=== PATIENT | male | born 1975 | race Caucasian/White ===

== ENCOUNTER → 2022-03-05 | Outpatient (CLI) | payer MEDICAID ==
[~2022-03-05] MED LIST: AMLO5TAB4 MT; ASPI-1160 MT; CLOP-31 MT; LIP40 MT; METF-414 MT
== END | disposition home or self-care (01) ==
LOC: LAB 08:10
PROVIDERS: ATTEND Specialist
DX: R05.9 Cough, unspecified (principal); Z20.822 Contact with and (suspected) exposure to COVID-19
CPT/HCPCS: C9803; U0003; U0005

== ENCOUNTER 2022-03-06 08:34 | Inpatient (IN) | payer MEDICAID ==
[~2022-03-06] VITALS: Ht 160 cm; Wt 79.0 kg
[2022-03-06] VITALS (8 sets, daily range): BP systolic 110–137; BP diastolic 69–84
[2022-03-06] MEDS ORDERED: NICARDIPINE 100MCG/ML 10ML VIAL (CATH LAB) IV ONE (08:36)
[2022-03-06] MEDS ORDERED: NITROGLYCERIN 50MCG/ML 10ML VIAL (CATH LAB) IV ONE (08:36)
[2022-03-06] MEDS ORDERED: HEPARIN SODIUM 1,000 UNIT/1ML VIAL IV ONE (08:36)
[2022-03-06] MEDS ORDERED: AMLO5TAB4 MT (10:25)
[2022-03-06] MEDS ORDERED: METF-414 MT (10:25)
[2022-03-06] MEDS ORDERED: LIP40 MT (10:25)
[2022-03-06] MEDS ORDERED: CLOP-31 MT (10:25)
[2022-03-06] MEDS ORDERED: ASPI-1160 MT (10:25)
[2022-03-06] MEDS ORDERED: IODIXANOL 320MG/ML 100 ML BOTTLE IV ONE ×2 (11:09→12:30)
[2022-03-06] MEDS ORDERED: LIDOCAINE HCL 1% 20ML VIAL (Pyxis) INJ ONE (11:09)
[2022-03-06] MEDS ORDERED: FENTANYL CITRATE/PF 50MCG/ML 2ML VIAL ONE (11:10)
[2022-03-06] MEDS ORDERED: MIDAZOLAM HCL 5 MG/5 ML VIAL ONE (11:10)
[2022-03-06] MEDS ORDERED: CLOPIDOGREL 75MG TABLET ONE (12:50)
[2022-03-06] MEDS ORDERED: CLOPIDOGREL 75MG TABLET PO NR (13:00)
[2022-03-06] MEDS ORDERED: MORPHINE SULFATE 2 MG/ML CPJ (NOT FOR IM USE) IV PRN (13:00)
[2022-03-06] MEDS: BLOOD SUGAR DIAGNOSTIC STRIP TEST SCH ×3 (13:00→21:18)
[2022-03-06] MEDS ORDERED: ONDANSETRON HCL 4MG/2ML INJ IV PRN (13:00)
[2022-03-06] MEDS ORDERED: DEXTROSE 50% WATER 50ML SYRINGE IV PRN (13:00)
[2022-03-06] MEDS ORDERED: ATROPINE SULFATE 1MG/10ML SYR IV PRN (13:00)
[2022-03-06] MEDS: INSULIN LISPRO 100 UNITS/ML SUBCUT SCH ×3 (13:00→21:00)
[2022-03-06] MEDS ORDERED: ACETAMINOPHEN 325MG TABLET PO PRN (13:00)
[2022-03-06] MEDS ORDERED: SODIUM CHLORIDE 0.45% 1,000 ML IV ONE (13:15)
[2022-03-06] MEDS ORDERED: NALOXONE HCL 0.4MG/ML VIAL IV PRN (20:15)
[2022-03-06] MEDS ORDERED: ATORVASTATIN CALCIUM 40MG TABLET PO SCH (21:00)
[2022-03-07 01:58] VITALS: BP 110/67
[2022-03-07 03:58] VITALS: BP 116/66
[2022-03-07 05:58] VITALS: BP 120/72
[2022-03-07 06:28] LABS: CHLORIDE 107 mEq/L (98-107)
[2022-03-07] MEDS: INSULIN LISPRO 100 UNITS/ML SUBCUT SCH (07:54)
[2022-03-07] MEDS: BLOOD SUGAR DIAGNOSTIC STRIP TEST SCH (07:54)
[2022-03-07 08:00] VITALS: BP 118/68
[2022-03-07] MEDS ORDERED: CLOPIDOGREL 75MG TABLET PO SCH (09:00)
[2022-03-07] MEDS ORDERED: ASPIRIN 81MG TABLET PO SCH (09:00)
[2022-03-07] MEDS ORDERED: AMLODIPINE 5MG TABLET PO SCH (09:00)
[2022-03-07 09:30] VITALS: BP 121/79
[2022-03-07 09:56] VITALS: BP 121/79
[2022-03-07 11:29] LABS: BASOPHILS % 0.3 % (0.0-2.0); EOSINOPHILS % 2.3 % (0.0-5.0); HEMATOCRIT. 40.6 % (42.0-52.0); HEMOGLOBIN. 13.9 g/dL (14.0-18.0); LYMPHOCYTES % 23.6 % (20.0-50.0); MEAN CORPUSCULAR VOLUME 81.5 fL (80.0-94.0); MEAN PLATELET VOLUME 7.8 fl (7.4-10.4); MONOCYTES % 6.4 % (2.0-8.0); NEUTROPHILS % 67.4 % (40.0-76.0); PLATELET 248 x1000/uL (130-400); RED BLOOD CELL COUNT 4.98 mill/uL (4.7-6.1); RED CELL DISTRIBUTION WIDTH 13.4 % (11.6-14.6)
== END 2022-03-07 11:00 | disposition home or self-care (01) | DRG 175 ==
LOC: CCL 08:34 → 5EST 08:35
PROVIDERS: ADMIT Specialist; ATTEND Specialist
PROC: 4A023N7 Measurement of Cardiac Sampling and Pressure, Left Heart, Percutaneous Approach (ICD-10-PCS; principal; 2022-03-06)
PROC: 0270346 Dilation of Coronary Artery, One Artery, Bifurcation, with Drug-eluting Intraluminal Device, Percutaneous Approach (ICD-10-PCS; 2022-03-06)
PROC: B2111ZZ Fluoroscopy of Multiple Coronary Arteries using Low Osmolar Contrast (ICD-10-PCS; 2022-03-06)
PROC: 02703ZZ Dilation of Coronary Artery, One Artery, Percutaneous Approach (ICD-10-PCS; 2022-03-06)
PROC: 027034Z Dilation of Coronary Artery, One Artery with Drug-eluting Intraluminal Device, Percutaneous Approach (ICD-10-PCS; 2022-03-06)
DX: I25.10 Atherosclerotic heart disease of native coronary artery without angina pectoris (principal); E11.9 Type 2 diabetes mellitus without complications; E78.5 Hyperlipidemia, unspecified; I10 Essential (primary) hypertension; Z79.02 Long term (current) use of antithrombotics/antiplatelets; Z79.82 Long term (current) use of aspirin; Z79.84 Long term (current) use of oral hypoglycemic drugs; Z79.899 Other long term (current) drug therapy
CPT/HCPCS: 36415; 80048; 82962; 85025; 85347; 92928; 93005; 93458; C1725; C1769; C1874 ×2; C1887; C1893; J1644; J2250; J3010; J3490; Q9967

== ENCOUNTER 2025-06-14 00:53 | Inpatient (IN) | payer MEDICAID ==
[~2025-06-14] VITALS: Ht 162.6 cm; Wt 59.6 kg
[2025-06-14] VITALS (69 sets, daily range): BP systolic 83–140; BP diastolic 52–80; PULSE 87–139; RESP 11–31; TEMP 36.2–36.7; O2SAT 98–100
[~2025-06-14 00:53] MED LIST changes: -AMLO5TAB4 MT; +AMLO5TAB5 MT
[2025-06-14] MEDS: MORPHINE SULFATE 4 MG/ML INJ (FOR IV/IM USE) IV ONE (01:20)
[2025-06-14] MEDS: ONDANSETRON HCL 4MG/2ML INJ IV ONE (01:20)
[2025-06-14] MEDS: ASPIRIN 325MG TABLET PO ONE (01:20)
[2025-06-14 01:35] LABS: HEMATOCRIT. 30.7 % (42.0-52.0); HEMOGLOBIN. 9.9 g/dL (14.0-18.0); MEAN PLATELET VOLUME 7.4 fl (7.4-10.4); PLATELET 645 x1000/uL (130-400); RED BLOOD CELL COUNT 3.42 mill/uL (4.7-6.1); RED CELL DISTRIBUTION WIDTH 18.4 % (11.6-14.6)
[2025-06-14 01:44] LABS: CREATININE 1.1 mg/dL (0.6-1.3)
[2025-06-14 01:45] LABS: UREA NITROGEN BLOOD 20 mg/dL (9-23)
[2025-06-14 01:46] LABS: TROPONIN I HIGH SENSITIVITY 11 ng/L (3.0-53)
[2025-06-14] MEDS ORDERED: AMIODARONE 360MG/200ML 200 ML IV SCH (02:15)
[2025-06-14] MEDS: AMIODARONE 150MG/100ML D5W 100 ML IV ONE (02:19)
[2025-06-14 02:36] LABS: INR 1.0
[2025-06-14] MEDS: AMIODARONE 360MG/200ML 200 ML IV SCH ×2 (02:42→20:57)
[2025-06-14 03:48] LABS: TROPONIN I HIGH SENSITIVITY 14 ng/L (3.0-53)
[2025-06-14 06:23] LABS: BG BASE EXCESS -25.4 mmol/L (-2.0-3.0); BG CARBOXYHEMOGLOBIN 0.6 % (0.5-1.5); BG DEOXYHEMOGLOBIN 1.4 % (0.0-5.0); BG FLOW(L/min) 3.00 L/min; BG FRACTION INSPIRED OXYGEN 32; BG HCO3 ACT 2.9 mmol/L (21.0-28.0); BG METHEMOGLOBIN 0.2 % (0.5-1.5); BG OXYGEN SATURATION 98.6 % (94.0-98.0); BG OXYHEMOGLOBIN 97.8 % (94.0-98.0); BG PCO2 10.7 mmHg (35.0-48.0); BG PH 7.053 (7.350-7.450); BG PO2 159.8 mmHg (83.0-108.0); BG SAMPLE SITE RIGHT BRACHIAL; BG TOTAL HEMOGLOBIN 11.9 g/dL (13.5-17.5); BG VENT MODE NASAL CANNULA
[2025-06-14] MEDS ORDERED: DEXTROSE 50% WATER 50ML SYRINGE IV PRN ×2 (06:30→16:30)
[2025-06-14 06:32] LABS: HEMATOCRIT. 29.8 % (42.0-52.0); HEMOGLOBIN. 9.4 g/dL (14.0-18.0); MEAN PLATELET VOLUME 7.2 fl (7.4-10.4); PLATELET 651 x1000/uL (130-400); RED BLOOD CELL COUNT 3.30 mill/uL (4.7-6.1); RED CELL DISTRIBUTION WIDTH 19.2 % (11.6-14.6)
[2025-06-14 06:43] LABS: CREATININE 1.2 mg/dL (0.6-1.3)
[2025-06-14 06:44] LABS: TROPONIN I HIGH SENSITIVITY 13 ng/L (3.0-53); UREA NITROGEN BLOOD 27 mg/dL (9-23)
[2025-06-14] MEDS ORDERED: SODIUM BICARBONATE 8.4% 50MEQ/50ML SYR IV NR (06:45)
[2025-06-14 06:46] LABS: PHOSPHORUS 4.4 mg/dL (2.5-4.9)
[2025-06-14] MEDS: SODIUM BICARBONATE 8.4% 50MEQ/50ML SYR IV NR (06:48)
[2025-06-14] MEDS: SODIUM BICARBONATE 100 MEQ in SODIUM CHLORIDE 0.45% 900 ML IV SCH (07:28)
[2025-06-14 07:38] LABS: INR 1.0
[2025-06-14] MEDS: BLOOD SUGAR DIAGNOSTIC STRIP TEST SCH ×2 (07:50→17:00)
[2025-06-14] MEDS ORDERED: AMIODARONE HCL 900 MG in DEXT 5% WATER 482 ML IV SCH (08:30)
[2025-06-14] MEDS ORDERED: IPRATROPIUM/ALBUTEROL 0.5-3(2.5)MG/3ML NEB HHN PRN (08:45)
[2025-06-14] MEDS ORDERED: ACETAMINOPHEN 325MG TABLET PO PRN (08:45)
[2025-06-14] MEDS ORDERED: CLONIDINE 0.1MG TABLET PO PRN (08:45)
[2025-06-14] MEDS: AMIODARONE 360MG/200ML 200 ML IV ONE (09:00)
[2025-06-14] MEDS ORDERED: CEFEPIME 1GM IN DEXT 5% 50ML IV SCH (09:00)
[2025-06-14] MEDS: DIGOXIN 500MCG/2ML AMP IV NR (09:37)
[2025-06-14] MEDS: ENOXAPARIN 60MG/0.6ML SYR SUBCUT SCH (09:37)
[2025-06-14] MEDS: METHYLPREDNISOLONE SOD SUCC 40MG/ML (ACT-O-VIAL) IV SCH (09:37)
[2025-06-14] MEDS: PANTOPRAZOLE SODIUM 40 MG/VIAL IV SCH (09:37)
[2025-06-14] MEDS: INSULIN LISPRO 100 UNITS/ML SUBCUT SCH (09:38)
[2025-06-14] MEDS: CEFEPIME 2GM/100ML 100 ML IV SCH (10:36)
[2025-06-14] MEDS: VANCOMYCIN 1.25GM/250ML 250 ML IV NR (10:37)
[2025-06-14 11:32] LABS: BAND% 7.0 % (1.0-6.0); LYMPHOCYTES % MANUAL 2.0 % (20.0-50.0); MONOCYTES % MANUAL 1.0 % (2.0-8.0); NEUTROPHILS % MANUAL 90.0 % (45.0-75.0); PLATELET ESTIMATE INCREASED
[2025-06-14 12:14] LABS: BG BASE EXCESS -18.7 mmol/L (-2.0-3.0); BG CARBOXYHEMOGLOBIN 0.2 % (0.5-1.5); BG DEOXYHEMOGLOBIN 1.1 % (0.0-5.0); BG FRACTION INSPIRED OXYGEN 32; BG HCO3 ACT 5.7 mmol/L (21.0-28.0); BG METHEMOGLOBIN 0.2 % (0.5-1.5); BG OXYGEN SATURATION 98.9 % (94.0-98.0); BG OXYHEMOGLOBIN 98.5 % (94.0-98.0); BG PCO2 12.0 mmHg (35.0-48.0); BG PH 7.291 (7.350-7.450); BG PO2 153.9 mmHg (83.0-108.0); BG SAMPLE SITE RIGHT RADIAL; BG TOTAL HEMOGLOBIN 9.1 g/dL (13.5-17.5); BG VENT MODE NASAL CANNULA
[2025-06-14 13:25] LABS: CLARITY URINE CLEAR (CLEAR); COLOR URINE YELLOW (YELLOW); GLUCOSE URINE 3+ (NEGATIVE); KETONES URINE 4+ (NEGATIVE); LEUKOCYTE ESTERASE URINE NEGATIVE (NEGATIVE); NITRITE URINE NEGATIVE (NEGATIVE); OCCULT BLOOD URINE 2+ (NEGATIVE); PH URINE 5.0 (4.5-8.0); PROTEIN URINE 1+ (NEGATIVE); SPECIFIC GRAVITY URINE 1.038 (1.005-1.030); UROBILINOGEN URINE 0.2 E.U./dL (0.2-1.0)
[2025-06-14 13:56] LABS: BACTERIA URINE NONE SEEN; HYALINE CASTS URINE 0-5 /lpf; RBC URINE 0-2 /hpf (0-2); SQUAMOUS EPITHELIAL CELL URINE RARE /lpf (RARE/1+); WBC URINE 0-2 /hpf (0-2); YEAST URINE NONE SEEN
[2025-06-14 13:59] LABS: BAND% 15.0 % (1.0-6.0); LYMPHOCYTES % MANUAL 1.0 % (20.0-50.0); MONOCYTES % MANUAL 3.0 % (2.0-8.0); NEUTROPHILS % MANUAL 81.0 % (45.0-75.0); NUCLEATED RED BLOOD CELLS 1 /100 WBC; PLATELET ESTIMATE INCREASED
[2025-06-14 13:59] LABS: *AMPHETAMINES SCREEN URINE NEGATIVE (NEGATIVE)
[2025-06-14 14:00] LABS: *BARBITURATES SCREEN URINE NEGATIVE (NEGATIVE); *BENZODIAZEPINES SCREEN URINE NEGATIVE (NEGATIVE); *COCAINE SCREEN URINE NEGATIVE (NEGATIVE); CANNABINOID URINE SCREEN NEGATIVE (NEGATIVE); ECSTASY MDMA SCREEN URINE NEGATIVE (NEGATIVE); METHADONE URINE SCREEN NEGATIVE (NEGATIVE); OPIATES URINE SCREEN PRESUMPTIVE POSITIVE (NEGATIVE); PHENCYCLIDINE URINE SCREEN NEGATIVE (NEGATIVE)
[2025-06-14] MEDS ORDERED: PIPERACILLIN/TAZO 3.375G/50ML 50 ML IV SCH (14:00)
[2025-06-14 14:33] LABS: LACTATE DEHYDROGENASE 486 IU/L (120-246)
[2025-06-14 14:40] LABS: FOLIC ACID (FOLATE) SERUM 11.59 ng/mL (>5.38)
[2025-06-14 14:41] LABS: VITAMIN B12 SERUM 1376 pg/mL (211-911)
[2025-06-14] MEDS ORDERED: MAGNESIUM 2 G PREMIX 50 ML IV PRN (16:30)
[2025-06-14] MEDS ORDERED: BLOOD SUGAR DIAGNOSTIC STRIP TEST PRN (16:30)
[2025-06-14] MEDS: ASPIRIN 325MG EC TABLET PO SCH (17:22)
[2025-06-14] MEDS: INSULIN REGULAR 100U/100ML PMX 100 ML IV SCH (17:23)
[2025-06-14] MEDS: SODIUM CHLORIDE 0.9% 1,000 ML IV SCH (17:23)
[2025-06-14] MEDS: DEXT 5%/0.9% NACL 1,000 ML IV SCH (17:23)
[2025-06-14] MEDS: DIGOXIN 500MCG/2ML AMP IV SCH (17:40)
[2025-06-14 17:55] LABS: CREATININE 1.2 mg/dL (0.6-1.3); UREA NITROGEN BLOOD 24 mg/dL (9-23)
[2025-06-14 17:57] LABS: CREATINE KINASE MB FRACTION 2.9 ng/mL (0.5-3.6); LACTATE DEHYDROGENASE 396 IU/L (120-246); TROPONIN I HIGH SENSITIVITY 14.0 ng/L (3.0-53)
[2025-06-14 18:00] LABS: FOLIC ACID (FOLATE) SERUM 11.29 ng/mL (>5.38)
[2025-06-14 18:09] LABS: VITAMIN B12 SERUM > 2000 pg/mL (211-911)
[2025-06-14 18:18] LABS: PHOSPHORUS 1.0 mg/dL (2.5-4.9)
[2025-06-14] MEDS: KCL 20MEQ/100ML X 2 FOR TOTAL KCL 40MEQ/200ML IV SCH (18:39)
[2025-06-14] MEDS ORDERED: SODIUM BICARBONATE 8.4% 50MEQ/50ML SYR IV SCH (18:45)
[2025-06-14] MEDS: SODIUM PHOSPHATE 15 MMOL in SODIUM CHLORIDE 0.9% 245 ML IV PRN (21:27)
[2025-06-14] MEDS: VANCOMYCIN 750MG PMX (XELLIA) 150 ML IV SCH (21:28)
[2025-06-14] MEDS: AMIODARONE 200MG TABLET PO SCH (23:12)
[2025-06-14] MEDS: IPRATROPIUM/ALBUTEROL 0.5-3(2.5)MG/3ML NEB HHN SCH (23:36)
[2025-06-15] VITALS (84 sets, daily range): BP systolic 110–163; BP diastolic 59–136; PULSE 80–120; RESP 12–25; TEMP 36.6–37.4; O2SAT 98–100
[2025-06-15 00:13] LABS: CREATININE 1.0 mg/dL (0.6-1.3)
[2025-06-15 00:14] LABS: UREA NITROGEN BLOOD 19 mg/dL (9-23)
[2025-06-15 00:16] LABS: CREATINE KINASE MB FRACTION 2.5 ng/mL (0.5-3.6); PHOSPHORUS 1.4 mg/dL (2.5-4.9)
[2025-06-15 00:17] LABS: TROPONIN I HIGH SENSITIVITY 19.0 ng/L (3.0-53)
[2025-06-15] MEDS: POTASSIUM CHLORIDE 40 MEQ in SODIUM CHLORIDE 0.9% 230 ML IV PRN (01:32)
[2025-06-15 04:41] LABS: CREATININE 0.9 mg/dL (0.6-1.3); UREA NITROGEN BLOOD 16 mg/dL (9-23)
[2025-06-15 05:42] LABS: PHOSPHORUS 1.7 mg/dL (2.5-4.9)
[2025-06-15 06:31] LABS: HEMATOCRIT. 23.3 % (42.0-52.0); HEMOGLOBIN. 7.6 g/dL (14.0-18.0); MEAN PLATELET VOLUME 7.3 fl (7.4-10.4); PLATELET 379 x1000/uL (130-400); RED BLOOD CELL COUNT 2.58 mill/uL (4.7-6.1); RED CELL DISTRIBUTION WIDTH 19.4 % (11.6-14.6)
[2025-06-15] MEDS: POTASSIUM PHOSPHATE 30 MMOL in DEXT 5% WATER 490 ML IV NR (06:50)
[2025-06-15] MEDS: AMIODARONE 200MG TABLET PO SCH (08:41)
[2025-06-15] MEDS: POTASSIUM CHLORIDE 20MEQ TABLET SR PO NR (08:45)
[2025-06-15 09:19] LABS: BG BASE EXCESS -16.5 mmol/L (-2.0-3.0); BG CARBOXYHEMOGLOBIN 1.3 % (0.5-1.5); BG DEOXYHEMOGLOBIN 1.2 % (0.0-5.0); BG FRACTION INSPIRED OXYGEN 21; BG HCO3 ACT 8.4 mmol/L (21.0-28.0); BG METHEMOGLOBIN 0.3 % (0.5-1.5); BG OXYGEN SATURATION 98.8 % (94.0-98.0); BG OXYHEMOGLOBIN 97.2 % (94.0-98.0); BG PCO2 17.8 mmHg (35.0-48.0); BG PH 7.290 (7.350-7.450); BG PO2 146.1 mmHg (83.0-108.0); BG SAMPLE SITE RIGHT RADIAL; BG TOTAL HEMOGLOBIN 7.3 g/dL (13.5-17.5); BG VENT MODE ROOM AIR
[2025-06-15 10:35] LABS: CREATININE 0.9 mg/dL (0.6-1.3); UREA NITROGEN BLOOD 13 mg/dL (9-23)
[2025-06-15 10:37] LABS: ASPARTATE AMINOTRANSFERASE 10 IU/L (<34); BILIRUBIN TOTAL 0.3 mg/dL (0.1-1.0); PHOSPHORUS 2.4 mg/dL (2.5-4.9); PROTEIN TOTAL 4.9 g/dL (6.0-8.3)
[2025-06-15] MEDS: CEFEPIME 2GM/100ML 100 ML IV SCH (11:32)
[2025-06-15] MEDS: SODIUM BICARBONATE 150 MEQ in SODIUM CHLORIDE 0.45% 850 ML IV SCH (11:44)
[2025-06-15] MEDS: INSULIN GLARGINE 100 UNITS/ML SUBCUT SCH (11:45)
[2025-06-15] MEDS: ACETAMINOPHEN 325MG TABLET PO PRN (14:00)
[2025-06-15 17:22] LABS: CREATININE 0.9 mg/dL (0.6-1.3)
[2025-06-15 17:23] LABS: UREA NITROGEN BLOOD 11 mg/dL (9-23)
[2025-06-15 17:24] LABS: ASPARTATE AMINOTRANSFERASE 9 IU/L (<34)
[2025-06-15 17:25] LABS: BILIRUBIN TOTAL 0.3 mg/dL (0.1-1.0); PHOSPHORUS 1.8 mg/dL (2.5-4.9); PROTEIN TOTAL 4.9 g/dL (6.0-8.3)
[2025-06-15] MEDS ORDERED: VANCOMYCIN 1GM PMX (XELLIA) 200 ML IV SCH (18:00)
[2025-06-15] MEDS: KCL 20MEQ/100ML PREMIX 100 ML IV PRN (19:06)
[2025-06-15] MEDS: DEXT 5%/LACTATED RINGERS 1,000 ML IV SCH (21:05)
[2025-06-15 23:21] LABS: CREATININE 0.9 mg/dL (0.6-1.3); UREA NITROGEN BLOOD 11 mg/dL (9-23)
[2025-06-16] VITALS (67 sets, daily range): BP systolic 123–164; BP diastolic 67–113; PULSE 79–118; RESP 13–23; TEMP 36.6696–37.00296; O2SAT 97–100
[2025-06-16] MEDS: POTASSIUM CHLORIDE 20MEQ TABLET SR PO NR (02:07)
[2025-06-16] MEDS: SODIUM CHL 0.45% + KCL 20MEQ/L 1,000 ML IV SCH (02:35)
[2025-06-16 06:19] LABS: BASOPHILS % 0.1 % (0.0-2.0); EOSINOPHILS % 0.0 % (0.0-5.0); LYMPHOCYTES % 7.6 % (20.0-50.0); MEAN PLATELET VOLUME 7.1 fl (7.4-10.4); MONOCYTES % 6.3 % (2.0-8.0); NEUTROPHILS % 86.0 % (40.0-76.0); PLATELET 336 x1000/uL (130-400); RED BLOOD CELL COUNT 2.37 mill/uL (4.7-6.1); RED CELL DISTRIBUTION WIDTH 19.1 % (11.6-14.6)
[2025-06-16 06:33] LABS: HEMATOCRIT. 20.6 % (42.0-52.0)
[2025-06-16 06:34] LABS: HEMOGLOBIN. 6.9 g/dL (14.0-18.0)
[2025-06-16 06:42] LABS: CREATININE 0.8 mg/dL (0.6-1.3); UREA NITROGEN BLOOD 12 mg/dL (9-23)
[2025-06-16 06:44] LABS: PHOSPHORUS 1.4 mg/dL (2.5-4.9)
[2025-06-16 08:31] LABS: BAND% 11.0 % (1.0-6.0); LYMPHOCYTES % MANUAL 1.0 % (20.0-50.0); MONOCYTES % MANUAL 5.0 % (2.0-8.0); NEUTROPHILS % MANUAL 83.0 % (45.0-75.0); NUCLEATED RED BLOOD CELLS 1 /100 WBC
[2025-06-16 09:29] LABS: CREATININE 0.8 mg/dL (0.6-1.3); UREA NITROGEN BLOOD 13 mg/dL (9-23)
[2025-06-16] MEDS: POTASSIUM PHOSPHATE 30 MMOL in SODIUM CHLORIDE 0.9% 490 ML IV NR (09:51)
[2025-06-16] MEDS: SODIUM BICARBONATE 650MG TABLET PO SCH (09:51)
[2025-06-16] MEDS ORDERED: DEXTROSE 50% WATER 50ML SYRINGE IV PRN (11:30)
[2025-06-16] MEDS: BLOOD SUGAR DIAGNOSTIC STRIP TEST SCH (12:50)
[2025-06-16] MEDS: INSULIN LISPRO 100 UNITS/ML SUBCUT SCH (13:20)
[2025-06-16 14:20] LABS: PLATELET ESTIMATE NORMAL
[2025-06-16] MEDS ORDERED: NON FORMULARY MED XX SCH (16:00)
[2025-06-16 17:31] LABS: HEMATOCRIT. 23.5 % (42.0-52.0); HEMOGLOBIN. 8.1 g/dL (14.0-18.0); MEAN PLATELET VOLUME 7.1 fl (7.4-10.4); PLATELET 283 x1000/uL (130-400); RED BLOOD CELL COUNT 2.71 mill/uL (4.7-6.1); RED CELL DISTRIBUTION WIDTH 19.6 % (11.6-14.6)
[2025-06-16 17:39] LABS: INR 1.2
[2025-06-16] MEDS: IRON SUCROSE COMPLEX 100 MG/5 ML ML IV SCH (17:44)
[2025-06-16 17:45] LABS: CREATININE 0.7 mg/dL (0.6-1.3); UREA NITROGEN BLOOD 12 mg/dL (9-23)
[2025-06-16 17:47] LABS: ASPARTATE AMINOTRANSFERASE 11 IU/L (<34)
[2025-06-16 17:48] LABS: BILIRUBIN TOTAL 0.6 mg/dL (0.1-1.0); PROTEIN TOTAL 5.1 g/dL (6.0-8.3)
[2025-06-16 18:06] LABS: LYMPHOCYTES % MANUAL 5.0 % (20.0-50.0); MONOCYTES % MANUAL 8.0 % (2.0-8.0); NEUTROPHILS % MANUAL 87.0 % (45.0-75.0); PLATELET ESTIMATE NORMAL
[2025-06-16] MEDS: IOHEXOL-350 100 ML BOTTLE ONE ×2 (20:34)
[2025-06-17] VITALS (33 sets, daily range): BP systolic 55–138; BP diastolic 33–82; PULSE 88–131; RESP 14–34; TEMP 36.7–36.8; O2SAT 94–100
[2025-06-17 07:02] LABS: BASOPHILS % 0.1 % (0.0-2.0); EOSINOPHILS % 0.2 % (0.0-5.0); HEMATOCRIT. 22.2 % (42.0-52.0); HEMOGLOBIN. 7.9 g/dL (14.0-18.0); LYMPHOCYTES % 10.5 % (20.0-50.0); MEAN PLATELET VOLUME 6.9 fl (7.4-10.4); MONOCYTES % 6.8 % (2.0-8.0); NEUTROPHILS % 82.4 % (40.0-76.0); PLATELET 243 x1000/uL (130-400); RED BLOOD CELL COUNT 2.63 mill/uL (4.7-6.1); RED CELL DISTRIBUTION WIDTH 17.9 % (11.6-14.6)
[2025-06-17 07:22] LABS: CREATININE 0.6 mg/dL (0.6-1.3)
[2025-06-17 07:24] LABS: UREA NITROGEN BLOOD 13 mg/dL (9-23)
[2025-06-17] MEDS: GUAIFENESIN 200MG/10ML SUGAR FREE UDC PO PRN (13:06)
[2025-06-17] MEDS: DOCUSATE SODIUM 100MG CAPSULE PO PRN (13:12)
[2025-06-17] MEDS ORDERED: ONDANSETRON HCL 4MG/2ML INJ IV PRN (18:45)
[2025-06-17] MEDS: ONDANSETRON HCL 4MG/2ML INJ IV PRN (19:09)
[2025-06-17] MEDS ORDERED: SODIUM CHLORIDE 0.9% 1,000 ML IV ONE (20:00)
[2025-06-17] MEDS ORDERED: NOREPINEPHRINE 8 MG in DEXT 5% WATER 242 ML IV PRN (20:30)
[2025-06-17] MEDS ORDERED: NOREPINEPHRINE 8MG/250ML PMX 250 ML IV PRN (20:30)
[2025-06-17] MEDS: NOREPINEPHRINE 8MG/250ML PMX 250ML IV PRN (20:40)
[2025-06-17 23:08] LABS: BASOPHILS % 0.2 % (0.0-2.0); EOSINOPHILS % 0.0 % (0.0-5.0); LYMPHOCYTES % 10.4 % (20.0-50.0); MEAN PLATELET VOLUME 7.3 fl (7.4-10.4); MONOCYTES % 6.4 % (2.0-8.0); NEUTROPHILS % 83.0 % (40.0-76.0); PLATELET 271 x1000/uL (130-400); RED BLOOD CELL COUNT 1.80 mill/uL (4.7-6.1); RED CELL DISTRIBUTION WIDTH 17.7 % (11.6-14.6)
[2025-06-17 23:11] LABS: CREATININE 1.0 mg/dL (0.6-1.3); UREA NITROGEN BLOOD 21 mg/dL (9-23)
[2025-06-17 23:16] LABS: HEMATOCRIT. 15.9 % (42.0-52.0); HEMOGLOBIN. 5.4 g/dL (14.0-18.0); TROPONIN I HIGH SENSITIVITY 69 ng/L (3.0-53)
[2025-06-17 23:32] LABS: INR 1.4
[2025-06-17] MEDS: NOREPINEPHRINE 32 MG in DEXT 5% WATER 218 ML IV PRN (23:32)
[2025-06-17] MEDS ORDERED: IOHEXOL-350 100 ML BOTTLE ONE (23:48)
[2025-06-18] VITALS (96 sets, daily range): BP systolic 66–148; BP diastolic 46–121; PULSE 18–123; RESP 6–31; TEMP 35.89176–37.1; O2SAT 97–100
[2025-06-18] MEDS: ALBUMIN HUMAN 12.5GM/50ML (25%) IV SCH (00:20)
[2025-06-18] MEDS ORDERED: VASOPRESSIN 20 UNIT in SODIUM CHLORIDE 0.9% 99 ML IV PRN (00:30)
[2025-06-18 01:30] LABS: BG BASE EXCESS -13.1 mmol/L (-2.0-3.0); BG CARBOXYHEMOGLOBIN 1.3 % (0.5-1.5); BG DEOXYHEMOGLOBIN 3.0 % (0.0-5.0); BG FRACTION INSPIRED OXYGEN 40; BG HCO3 ACT 13.2 mmol/L (21.0-28.0); BG METHEMOGLOBIN 0.2 % (0.5-1.5); BG OXYGEN SATURATION 97.0 % (94.0-98.0); BG OXYHEMOGLOBIN 95.5 % (94.0-98.0); BG PCO2 31.7 mmHg (35.0-48.0); BG PEEP (cmH2O) 5.0 cmH2O; BG PH 7.236 (7.350-7.450); BG PO2 114.4 mmHg (83.0-108.0); BG SAMPLE SITE RIGHT RADIAL; BG TIDAL VOLUME(mL) 450.0 mL; BG TOTAL HEMOGLOBIN 4.3 g/dL (13.5-17.5); BG VENT MODE VENT - AC; BG VENT RATE 16.0 set
[2025-06-18] MEDS ORDERED: DEXMEDETOMIDINE IV PRN (01:45)
[2025-06-18] MEDS ORDERED: SODIUM CHLORIDE 0.9% IV PRN (01:45)
[2025-06-18] MEDS ORDERED: DEXMEDETOMIDINE 100 ML IV PRN ×2 (01:45)
[2025-06-18] MEDS ORDERED: LACTATED RINGERS 1,000 ML IV ONE (01:55)
[2025-06-18] MEDS: LACTATED RINGERS 1,000 ML IV ONE ×2 (01:58→15:19)
[2025-06-18] MEDS: PHENYLEPHRINE 50MG/250ML PMX 250 ML IV PRN (03:07)
[2025-06-18 04:09] LABS: *LD FRACTION 1 29 % (17-32); *LD FRACTION 2 32 % (25-40); *LD FRACTION 3 15 % (17-27); *LD FRACTION 4 11 % (5-13); *LD FRACTION 5 13 % (4-20)
[2025-06-18] MEDS: FENTANYL 2500MCG/250ML PMX 250 ML IV PRN (05:41)
[2025-06-18 06:56] LABS: HEMATOCRIT. 28.0 % (42.0-52.0); HEMOGLOBIN. 8.9 g/dL (14.0-18.0); MEAN PLATELET VOLUME 8.0 fl (7.4-10.4); PLATELET 172 x1000/uL (130-400); RED BLOOD CELL COUNT 3.09 mill/uL (4.7-6.1); RED CELL DISTRIBUTION WIDTH 17.3 % (11.6-14.6)
[2025-06-18 07:23] LABS: UREA NITROGEN BLOOD 29.0 mg/dL (9-23)
[2025-06-18 07:26] LABS: CREATININE 1.5 mg/dL (0.6-1.3)
[2025-06-18] MEDS ORDERED: SODIUM CHLORIDE 0.9% 1,000 ML IV SCH (07:45)
[2025-06-18] MEDS: SODIUM ZIRCONIUM CYCLOSILICATE 10GM/PACKET PO ONE (08:26)
[2025-06-18] MEDS: PANTOPRAZOLE 80 MG in SODIUM CHLORIDE 0.9% 100 ML IV SCH (08:29)
[2025-06-18] MEDS: OCTREOTIDE 1,000 MCG in SODIUM CHLORIDE 0.9% 98 ML IV SCH (08:30)
[2025-06-18] MEDS: SODIUM CHLORIDE 0.9% 1,000 ML IV SCH (08:31)
[2025-06-18] MEDS: MIDODRINE HCL 5MG TABLET PO SCH (10:27)
[2025-06-18 11:03] LABS: BAND% 36.0 % (1.0-6.0); LYMPHOCYTES % MANUAL 3.0 % (20.0-50.0); METAMYELOCYTES % 1.0 % (0-0); MONOCYTES % MANUAL 2.0 % (2.0-8.0); NEUTROPHILS % MANUAL 58.0 % (45.0-75.0); NUCLEATED RED BLOOD CELLS 1 /100 WBC
[2025-06-18 11:04] LABS: PLATELET ESTIMATE NORMAL
[2025-06-18] MEDS ORDERED: LIDOCAINE HCL 1% 10 MG/ML 10ML VIAL ONE (11:36)
[2025-06-18 14:47] LABS: BG BASE EXCESS -3.4 mmol/L (-2.0-3.0); BG CARBOXYHEMOGLOBIN 0.3 % (0.5-1.5); BG DEOXYHEMOGLOBIN 2.1 % (0.0-5.0); BG FRACTION INSPIRED OXYGEN 40; BG HCO3 ACT 20.6 mmol/L (21.0-28.0); BG METHEMOGLOBIN 0.3 % (0.5-1.5); BG OXYGEN SATURATION 97.9 % (94.0-98.0); BG OXYHEMOGLOBIN 97.3 % (94.0-98.0); BG PCO2 32.8 mmHg (35.0-48.0); BG PEEP (cmH2O) 5.0 cmH2O; BG PH 7.416 (7.350-7.450); BG PO2 116.9 mmHg (83.0-108.0); BG SAMPLE SITE RIGHT RADIAL; BG TIDAL VOLUME(mL) 450.0 mL; BG TOTAL HEMOGLOBIN 8.9 g/dL (13.5-17.5); BG VENT MODE VENT - AC; BG VENT RATE 16.0 set
[2025-06-18] MEDS: METRONIDAZOLE 500 MG PREMIX 100 ML IV SCH (15:18)
[2025-06-18 16:14] LABS: CREATININE 1.3 mg/dL (0.6-1.3); UREA NITROGEN BLOOD 37.0 mg/dL (9-23)
[2025-06-18 18:39] LABS: PLATELET 171 x1000/uL (130-400); RED BLOOD CELL COUNT 2.80 mill/uL (4.7-6.1); RED CELL DISTRIBUTION WIDTH 16.1 % (11.6-14.6)
[2025-06-18 18:48] LABS: INR 1.5
[2025-06-18] MEDS: CEFEPIME 2GM/100ML 100 ML IV SCH (22:00)
[2025-06-19] VITALS (10 sets, daily range): BP systolic 83–114; BP diastolic 63–77; PULSE 99–110; RESP 16–19; TEMP 36.9; O2SAT 100
== END 2025-06-19 02:25 | disposition short-term general hospital (02) | DRG 720 ==
LOC: ER 00:59 → EDBEDREQ 02:37 → EDBEDREQTM 02:37 → EDBEDREQSVC 02:37 → ENRESERV 02:41 → ENRESERVTM 02:45 → CANRESERV 02:45 → ENRESERV 03:00 → CVICU 03:51 → 3WST 06-16 18:04 → CVICU 06-17 22:09
PROVIDERS: ADMIT Internal Medicine; ATTEND Internal Medicine
PROC: 30233N1 Transfusion of Nonautologous Red Blood Cells into Peripheral Vein, Percutaneous Approach (ICD-10-PCS; 2025-06-16)
PROC: 5A1935Z Respiratory Ventilation, Less than 24 Consecutive Hours (ICD-10-PCS; principal; 2025-06-18)
PROC: 0BH17EZ Insertion of Endotracheal Airway into Trachea, Via Natural or Artificial Opening (ICD-10-PCS; 2025-06-18)
PROC: 02HV33Z Insertion of Infusion Device into Superior Vena Cava, Percutaneous Approach (ICD-10-PCS; 2025-06-18)
PROC: B548ZZA Ultrasonography of Superior Vena Cava, Guidance (ICD-10-PCS; 2025-06-18)
PROC: 06HY33Z Insertion of Infusion Device into Lower Vein, Percutaneous Approach (ICD-10-PCS; 2025-06-19)
DX: A41.9 Sepsis, unspecified organism (principal); J96.01 Acute respiratory failure with hypoxia; R57.8 Other shock; R65.21 Severe sepsis with septic shock; G92.8 Other toxic encephalopathy; E11.10 Type 2 diabetes mellitus with ketoacidosis without coma; I30.9 Acute pericarditis, unspecified; J90 Pleural effusion, not elsewhere classified; N17.9 Acute kidney failure, unspecified; E87.0 Hyperosmolality and hypernatremia; D62 Acute posthemorrhagic anemia; E11.22 Type 2 diabetes mellitus with diabetic chronic kidney disease; E87.6 Hypokalemia; I48.91 Unspecified atrial fibrillation; Z20.822 Contact with and (suspected) exposure to COVID-19; D75.839 Thrombocytosis, unspecified; N18.9 Chronic kidney disease, unspecified; I12.9 Hypertensive chronic kidney disease with stage 1 through stage 4 chronic kidney disease, or unspecified chronic kidney disease; I25.10 Atherosclerotic heart disease of native coronary artery without angina pectoris; R59.0 Localized enlarged lymph nodes; E78.00 Pure hypercholesterolemia, unspecified; E83.39 Other disorders of phosphorus metabolism; Z95.1 Presence of aortocoronary bypass graft; Z79.899 Other long term (current) drug therapy
CPT/HCPCS: 31500; 31720; 36415; 36573; 36600; 70496; 70498; 71045; 71275; 74176; 80048; 80053; 80162; 80202; 80305; 81003; 82010; 82140; 82375; 82550; 82553; 82607; 82728; 82746; 82805; 82962; 83036; 83540; 83550; 83605; 83615; 83625; 83735; 83880; 83930; 84100; 84132; 84145; 84484; 85025; 85027; 85044; 85379; 85384; 86038; 86141; 86850; 86900; 86920; 87426; 93005; 93306; 93970; 94003; 94070; 94640; 94664; 94760; 96365; 96368; 96375; 98960; 99291; A4606; C1725; C1769; J0282; J0692; J1160; J1650; J1815; J2003; J2270; J2354; J2371; J2405; J2470; J2919; J3010; J3373; J3480; J3490; J7030; J7040; J7042; J7050; J7060; J7121; P9016; P9047; Q9967